=== PATIENT | male | born 1960 | race Caucasian/White ===

== ENCOUNTER 2023-04-18 12:34 | Inpatient (IN) | payer MEDICARE, OTHER ==
[~2023-04-18] VITALS: Ht 175.3 cm; Wt 97.5 kg
--- NOTE | 2023-04-18 12:39 | NUR ---
PAGED ART, MANUFACTURING CLERK FOR CONSULT. NO ANSWER. WILL PAGE AGAIN.
--- NOTE | 2023-04-18 12:45 | NUR ---
JOESPH ALVES FROM [facility] FOR GEROPSYCH ADMISSION REQUIRING CRISIS EVAL. THE PATIENT IS ALERT AND ORIENTED X 2-3. DENIES SI/HI. DENIES HAVING ANY TYPE OF HALLUCINATIONS. IN ROOM AIR AND DENIES SOB. RESPIRATION REGULAR AND UNLABORED. WILL CONTINUE TO MONITOR THE PATIENT.
[2023-04-18] MEDS ORDERED: LEVE500T20 PO (13:38)
[2023-04-18] MEDS ORDERED: PANT40TA49 PO (13:38)
[2023-04-18] MEDS ORDERED: ATOR40TA PO (13:38)
--- NOTE | 2023-04-18 13:47 | NUR ---
SPOKE WITH RUFUS BERNAL, ART PAGED.
--- NOTE | 2023-04-18 15:58 | NUR ---
BED 228. ADMITTING MADE AWARE
--- NOTE | 2023-04-18 16:01 | NUR ---
REPORT GIVEN TO NURSE MARTINEZ FOR ELVIRA
--- NOTE | 2023-04-18 16:54 | NUR ---
GPS/TN RECEIVED PT ON 5150 HOLD FROM ER ADMITTING ORDERS FROM DR RODRIGUEZ RECEIVED AND CARRIED OUT. ON FACE TO FACE ASSESSMENT NO SI/HI REPORTED. AMBULATORY. PROPERTY CHECKED FOR CONTRABAND. WILL CONTINUE WITH ADMISSION.
--- NOTE | 2023-04-18 16:59 | NUR ---
THE PATIENT IS TRANSFERED TO ROOM 220 IN STABLE CONDITION PER POLICY.
[2023-04-18] MEDS ORDERED: MAG HYDROX/AL HYDROX/SIMETH 30 ML UDC PO PRN (17:00)
[2023-04-18] MEDS ORDERED: MAGNESIUM HYDROXIDE 30 ML UDC PO PRN (17:00)
[2023-04-18] MEDS ORDERED: LORAZEPAM 0.5 MG TABLET PO PRN (17:00)
[2023-04-18] MEDS ORDERED: BLOOD SUGAR DIAGNOSTIC 1 EACH STRIP IN ONE (17:00)
[2023-04-18] MEDS ORDERED: ASCO-352 PO (17:06)
[2023-04-18] MEDS ORDERED: LACT1CAP71 PO (17:06)
[2023-04-18] MEDS ORDERED: CHRO1TAB8 PO (17:06)
--- NOTE | 2023-04-18 17:14 | NUR ---
GPS/RN MELIA LACKEY HOLDER PILE DRIVING RECONCILED HOME MEDS
--- NOTE | 2023-04-18 19:13 | NUR ---
GPS/RN ENDORSED TO OCTAVIO GRANT TO FINISH CONSENT FORMS AND CALL THE FAMILY.
--- NOTE | 2023-04-18 19:53 | NUR ---
GPS RISK COMPLIANCE MANAGER NOTE: PATIENT IS ALERT AND ORIENTED X 2-3. DENIES SI/HI. DENIES HAVING ANY TYPE OF HALLUCINATIONS. IN ROOM AIR AND DENIES SOB. RESPIRATION REGULAR AND UNLABORED. EASILY AGITATED AND IRRITABLE. 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 WILL CONTINUE TO MONITOR THE PATIENT AND ANTICIPATE NEEDS.
[2023-04-18 20:00] VITALS: BP 136/71; TEMP 98.1
[2023-04-18] MEDS: ATORVASTATIN 40 MG TABLET PO SCH (21:30)
[2023-04-18] MEDS: TEMAZEPAM 7.5 MG CAPSULE PO PRN (21:30)
--- NOTE | 2023-04-18 21:30 | NUR ---
GPS PASTRY BAKER NOTE RESTORIL PRN REQUESTED BY PT FOR INSOMNIA- RX GIVEN PER PT'S REQUEST AND MD'S ORDER.
--- NOTE | 2023-04-18 22:33 | NUR ---
GPS MOBILITY DEVELOPER NOTE 1HR POST RESTORIL-PT NOTED SLEEPING, EASY TO AROUSE. SAFETY MEASURES OBSERVED.WILL CONT TO MONITOR SAFETY AND BEHAVIOR.
--- NOTE | 2023-04-19 01:06 | NUR ---
GPS PARASITOLOGY TEACHER NOTE PT IN BED, APPEARS SLEEPING, BREATHING EVEN AND UNLABORED, EASY TO AROUSE. SAFETY MEASURES OBSERVED. WILL CONTINUE TO MONITOR BEHAVIOR AND SAFETY.
--- NOTE | 2023-04-19 02:06 | NUR ---
GPS MANAGER COMMERCIAL SALES NOTE PT NOTED AWAKE AT THIS TIME, PT REQUESTED FOR A URINAL, URINAL PROVIDED AND ASKED PT IF NEEDS ANYTHING ELSE AT THIS TIME,OR IF HE NEEDS FURTHER ASSISTANCE, PT VERBALIZED HE IS OK AND WILL CALL STAFF/NURSE IF HE NEEDS ANY HELP.
--- NOTE | 2023-04-19 03:30 | NUR ---
GPS DEALER COMPLIANCE REPRESENTATIVE NOTE PT GOT UP AND REQUESTED FOR HIS SWEATER , OFFERED TO ADJUST PT'S ROOM TEMP, BUT PT STATED TEMPERATURE IN ROOM IS FINE, SWEATER HELPS HIM KEEP WARM AND STATED IF HIS BODY GETS COLD HIS HIP HURTS AND VERBALIZED HE DOES NOT WANT PAIN MEDICINE, PT'S ORANGE SWEATER GIVEN TO HIM BY CHARGE NURSE NOHEMY PER PT'S REQUEST, STRINGS REMOVED PRIOR FOR SAFETY MEASURES AND GPS PROTOCOL,PT VERBALIZED UNDERSTANDING OF THE SAFETY MEASURES, ASSISTED PT BACK TO HIS BED. PT IS COOPERATIVE. WILL CONTINUE TO MONITOR.
--- NOTE | 2023-04-19 06:12 | NUR ---
GPS SOLUTION SPECIALIST NOTE PT RESTING IN BED AT THIS TIME, NO S/SX OF DISTRESS, ALERT ORIENTED X 3, ABLE TO VERBALIZED HIS NEEDS, COOPERATIVE DURING SHIT BUT WITH EPISODES OF AGITATION AND EASILY IRRITABLE, TENDS TO BE DEMANDING AND NEEDY AT TIMES, BUT APPRECIATIVE WITH ALL ASSISTANCE PROVIDED. PT SLEPT APPROXIMATELY 7HRS DURING SHIFT. ALL NEEDS ATTENDED, SAFETY MEASURES OBSERVED. BED AT LOWEST POSITION , SIDE TABLE WITHIN PT'S REACHED. WILL CONT. TO MONITOR PT'S BEHAVIOR AND SAFETY. WILL ENDORSE CONTINUATION OF CARE TO AM ONCOMING NURSE.
[2023-04-19] MEDS: PANTOPRAZOLE 40 MG TABLET.DR PO SCH ×2 (07:30→08:30)
[2023-04-19 08:00] VITALS: BP 155/65; TEMP 98.6
[2023-04-19 08:10] LABS: ALBUMIN 3.5 g/dL (3.4-5.0); BILIRUBIN,TOTAL 0.5 mg/dL (0.2-1.0); CALCIUM, SERUM 9.3 mg/dL (8.5-10.1); POTASSIUM 4.2 mmol/L (3.5-5.1); TOTAL PROTEIN, SERUM 7.6 g/dL (6.4-8.2)
[2023-04-19] MEDS: LEVETIRACETAM (250 MG) 250 MG TABLET PO SCH (08:30)
[2023-04-19] MEDS: ARIPIPRAZOLE 5 MG TABLET PO SCH ×2 (10:25→16:13)
[2023-04-19] MEDS: AMLODIPINE BESYLATE 5 MG TABLET PO SCH (10:25)
[2023-04-19] MEDS: DIVALPROEX SODIUM 250 MG TABLET.DR PO SCH ×2 (10:25→20:47)
[2023-04-19 16:00] VITALS: BP 152/84; TEMP 97.7
[2023-04-19] MEDS: ACETAMINOPHEN 325 MG TABLET PO PRN (20:52)
[2023-04-19 20:53] VITALS: BP 140/70; TEMP 97.9
[2023-04-19] MEDS: ATORVASTATIN 40 MG TABLET PO SCH (21:05)
[2023-04-20] MEDS: PANTOPRAZOLE 40 MG TABLET.DR PO SCH (07:30)
[2023-04-20 08:00] VITALS: BP 143/83; TEMP 97.4
[2023-04-20] MEDS: DIVALPROEX SODIUM 250 MG TABLET.DR PO SCH ×2 (08:33→21:36)
[2023-04-20] MEDS: AMLODIPINE BESYLATE 5 MG TABLET PO SCH (08:33)
[2023-04-20] MEDS: ARIPIPRAZOLE 5 MG TABLET PO SCH ×2 (08:33→16:18)
[2023-04-20] MEDS: LEVETIRACETAM (250 MG) 250 MG TABLET PO SCH (08:33)
[2023-04-20] MEDS ORDERED: POLYETHYLENE GLYCOL 3350 17 GM POWD.PACK PO PRN (13:00)
[2023-04-20] MEDS: DOCUSATE SODIUM 100 MG CAPSULE PO SCH ×2 (13:16→16:18)
[2023-04-20 16:00] VITALS: BP 141/94; TEMP 97.8
[2023-04-20 20:20] VITALS: BP 139/83; TEMP 98.1
[2023-04-20] MEDS: ATORVASTATIN 40 MG TABLET PO SCH (21:36)
--- NOTE | 2023-04-20 21:44 | NUR ---
Pt A/O x3 and able to make needs known. Pt is compliant with care and friendly with staff. Compliant with all PM meds and tolerated well. Pt is calm and resting in bed without s/s of any kind of distress. Tolerating room air well without SOB noted. Has left side of body weakness and able to transfer to wheelchair safely. Has BRP. Vital signs within normal limits. Frequent visual check done for safety Q 15mins. Will continue to monitor. Will endorse to next shift.
[2023-04-20] MEDS: ACETAMINOPHEN 325 MG TABLET PO PRN (21:51)
--- NOTE | 2023-04-20 21:54 | NUR ---
Pt c/o left hip pain 01/17. Tylenol 650mg po prn given as ordered. Will continue to monitor.
--- NOTE | 2023-04-20 23:00 | NUR ---
Post 1 hr Tylenol effective. WA 0/10. Will continue to monitor. Frequent visual check done for safety.
[2023-04-21 08:00] VITALS: BP 135/87; TEMP 97.6
[2023-04-21] MEDS: ARIPIPRAZOLE 5 MG TABLET PO SCH ×2 (08:51→16:14)
[2023-04-21] MEDS: DOCUSATE SODIUM 100 MG CAPSULE PO SCH ×2 (08:51→16:14)
[2023-04-21] MEDS: AMLODIPINE BESYLATE 5 MG TABLET PO SCH (08:52)
[2023-04-21] MEDS: DIVALPROEX SODIUM 250 MG TABLET.DR PO SCH ×2 (08:52→21:02)
[2023-04-21] MEDS: LEVETIRACETAM (250 MG) 250 MG TABLET PO SCH (08:52)
[2023-04-21] MEDS: PANTOPRAZOLE 40 MG TABLET.DR PO SCH (08:52)
--- NOTE | 2023-04-21 10:09 | NUR ---
MIAN Discharge Note: Patient currently resides with brother Hudson ([phone]) located at [address] [place] [address] , [place] [address]; ([phone]). Pt unsure if he will return back, if not pt would want this video game script writer to find him a SNF. MIAN will work with the MD, family, and pt to help coordinate appropriate discharge.
--- NOTE | 2023-04-21 10:09 | NUR ---
MIAN Clinical Note: Pt placed on a 5150 hold for GD. Per hold, pt was aggressive with family. Patient currently resides with brother Hudson ([phone]) located at [address] [place] [address]; ([phone]). Pt unsure if he will return back, if not pt would want this marketing copywriter to find him a SNF.
--- NOTE | 2023-04-21 13:16 | NUR ---
MIAN Family Contact: SW attempted to contact pt's brother Everardo ([phone]) and his phone was off and MIAN was unable to leave a voicemail due to mailbox not being set up. MIAN will attempt to contact again.
--- NOTE | 2023-04-21 13:34 | NUR ---
wants to make own arrangements for discharge.social service informed.
--- NOTE | 2023-04-21 14:48 | NUR ---
MIAN Family Contact: SW received a call from pt's brother Everardo ([phone]) who stated that pt cannot return back and will need a SNF.
[2023-04-21 16:00] VITALS: BP 143/96; TEMP 98.2
[2023-04-21 21:02] VITALS: BP 118/64; TEMP 97.4
[2023-04-21] MEDS: ACETAMINOPHEN 325 MG TABLET PO PRN (21:02)
[2023-04-21] MEDS: ATORVASTATIN 40 MG TABLET PO SCH (21:02)
[2023-04-21] MEDS: TEMAZEPAM 7.5 MG CAPSULE PO PRN (21:03)
[2023-04-22] MEDS: PANTOPRAZOLE 40 MG TABLET.DR PO SCH (07:58)
[2023-04-22 08:00] VITALS: BP 124/72; TEMP 98.6
[2023-04-22] MEDS: LEVETIRACETAM (250 MG) 250 MG TABLET PO SCH (08:00)
[2023-04-22] MEDS: DOCUSATE SODIUM 100 MG CAPSULE PO SCH ×2 (08:00→16:33)
[2023-04-22] MEDS: ARIPIPRAZOLE 5 MG TABLET PO SCH ×2 (08:01→16:34)
[2023-04-22] MEDS: DIVALPROEX SODIUM 250 MG TABLET.DR PO SCH (08:01)
[2023-04-22] MEDS: AMLODIPINE BESYLATE 5 MG TABLET PO SCH (08:01)
[2023-04-22 16:00] VITALS: BP 104/58; TEMP 98.1
[2023-04-22] MEDS: ACETAMINOPHEN 325 MG TABLET PO PRN (18:22)
--- NOTE | 2023-04-22 18:22 | NUR ---
MUSHROOM PICKER NOTE PATIENT C/O LEFT HIP PAIN IN SCALE 0-10, PATIENT STATED"8". TYLENOL PO GIVEN DIRECTED.
--- NOTE | 2023-04-22 19:00 | NUR ---
FLOORING PROFESSIONAL CLOSING NOTE PATIENT AWAKE, ALERT AND ORIENTED X3. PATIENT CALM, CONVERSING WITHOUT S/S OF DISCOMFORT NOTED. PATIENT DENIES PAIN. PATIENT IS USING W/C TO GO AROUND THE HALLWAY. SAFETY MEASURES IN PLACE, BED LOCKED TO THE LOWEST POSITION, TABLE WITHIN REACH. I WILL ENDORSE TO THE FOLLOWING NURSE.
[2023-04-22 20:23] VITALS: BP 110/71; TEMP 97.6
[2023-04-22] MEDS: TEMAZEPAM 7.5 MG CAPSULE PO PRN (21:16)
[2023-04-22] MEDS: DIVALPROEX SODIUM 500 MG TABLET.DR PO SCH (21:16)
[2023-04-22] MEDS: ATORVASTATIN 40 MG TABLET PO SCH (21:16)
[2023-04-23] MEDS: PANTOPRAZOLE 40 MG TABLET.DR PO SCH (07:59)
[2023-04-23 08:00] VITALS: BP 139/76; TEMP 98.6
[2023-04-23] MEDS: ARIPIPRAZOLE 5 MG TABLET PO SCH ×2 (08:00→16:44)
[2023-04-23] MEDS ORDERED: DIVALPROEX SODIUM 250 MG TABLET.DR PO SCH (08:00)
[2023-04-23] MEDS: AMLODIPINE BESYLATE 5 MG TABLET PO SCH (08:00)
[2023-04-23] MEDS: DOCUSATE SODIUM 100 MG CAPSULE PO SCH ×2 (08:00→16:44)
[2023-04-23] MEDS: LEVETIRACETAM (250 MG) 250 MG TABLET PO SCH (08:01)
--- NOTE | 2023-04-23 13:13 | NUR ---
SNF Referral: MIAN sent clinicals to Martha mckinnon from [facility] ([phone]) for placement. MIAN sent H & P, progress notes, and medication list.
[2023-04-23] MEDS: DIVALPROEX SODIUM 250 MG TABLET.DR PO SCH (13:22)
--- NOTE | 2023-04-23 13:56 | NUR ---
SNF Contact: SW spoke with Martha mckinnon from [facility] ([phone]) who stated pt is accepted.
[2023-04-23 16:00] VITALS: BP 135/75; TEMP 98.7
[2023-04-23 19:43] VITALS: BP 129/80; TEMP 97.8
[2023-04-23] MEDS: DIVALPROEX SODIUM 500 MG TABLET.DR PO SCH (21:02)
[2023-04-23] MEDS: ATORVASTATIN 40 MG TABLET PO SCH (21:02)
[2023-04-23] MEDS: ACETAMINOPHEN 325 MG TABLET PO PRN (21:02)
[2023-04-23] MEDS: TEMAZEPAM 7.5 MG CAPSULE PO PRN (23:13)
[2023-04-24 08:00] VITALS: BP 140/84; TEMP 97.9
[2023-04-24] MEDS: PANTOPRAZOLE 40 MG TABLET.DR PO SCH (08:10)
[2023-04-24] MEDS: ARIPIPRAZOLE 5 MG TABLET PO SCH ×2 (08:10→16:05)
[2023-04-24] MEDS: DIVALPROEX SODIUM 250 MG TABLET.DR PO SCH ×2 (08:10→12:22)
[2023-04-24] MEDS: LEVETIRACETAM (250 MG) 250 MG TABLET PO SCH (08:11)
[2023-04-24] MEDS: AMLODIPINE BESYLATE 5 MG TABLET PO SCH (08:11)
[2023-04-24] MEDS: DOCUSATE SODIUM 100 MG CAPSULE PO SCH ×2 (08:11→16:05)
--- NOTE | 2023-04-24 09:56 | NUR ---
RN-CO: PATIENT IS IN THE DINING ROOM, SOCIALIZING W/ OTHER PATIENTS, SHE IS COOPERATIVE TO CARE. PT IS UNKEMPT AND DISHEVELED, UNMOTIVATED TO SELF CARE VENTILATE HER FEELINGS.
[2023-04-24 16:00] VITALS: BP 132/84; TEMP 97.5
--- NOTE | 2023-04-24 17:13 | NUR ---
RN-CO: Patient is insisting to shave his hair using hospital razor. RN stated that we cannot allowed him to shave his hair but he can shave his ragland with staff supervision. Patient stated " I can jassi this hospital for not letting me shave my hair and that is a big amount of money for me. RN replied he can go to the [facility] once he is discharge.
--- NOTE | 2023-04-24 19:30 | NUR ---
GPS RN NOTE, RECEIVED PATIENT AWAKE AND IN BED, NO S/S OR COMPLAINTS OF PAIN AT THIS TIME. PATIENT IS DISPLAYING NO S/S OF APPARENT DISTRESS AT THIS TIME. PATIENT BREATHING IS UNLABORED WITH EQUAL RISE AND FALL OF THE CHEST. PATIENT IS ALERT AND ORIENTED X 3 ON ROOM AIR WITH A SPO2 99%. PATIENT IS COMPLAINT WITH MEDICATIONS, ANXIOUS AT TIMES, DEMANDING, MAKES NEEDS KNOWN, IRRITABLE AT TIMES, AND COOPERATIVE. PATIENT DENIES SUICIDAL AND HOMICIDAL IDEATIONS AT THIS TIME. PATIENT ASSISTED WITH TURNING AND REPOSITIONING Q2HR AND PRN FOR COMFORT AND CIRCULATION. PATIENT HAS NO NEEDS AT THIS TIME. PATIENT EDUCATED ON THE USE OF THE CALL HAWKINS. PATIENT BED SIDE RAILS UP X 2 FOR SAFETY. PATIENT BED IS LOCKED, LOW, WITH BED ALARM ON. WILL CONTINUE TO MONITOR THIS PATIENT Q15 MINUTES WITH THE HELP OF STAFF TO MAINTAIN SAFETY.
[2023-04-24] MEDS: DIVALPROEX SODIUM 500 MG TABLET.DR PO SCH (21:36)
[2023-04-24] MEDS: ATORVASTATIN 40 MG TABLET PO SCH (21:36)
[2023-04-24] MEDS: ACETAMINOPHEN 325 MG TABLET PO PRN (21:52)
--- NOTE | 2023-04-24 21:52 | NUR ---
GPS RN NOTE, PATIENT HAS A COMPLAINT OF BILATERAL HIP PAIN AT 3 OUT OF 10 ON THE PAIN SCALE AND IS REQUESTING TYLENOL AT THIS TIME. PATIENT VITAL SIGNS ARE STABLE. GAVE TYLENOL 650MG PO Q6HR PRN ORDERED. WILL REASSESS PAIN AND I WILL CONTINUE TO MONITOR THIS PATIENT WITH THE HELP OF STAFF.
[2023-04-25 08:00] VITALS: BP 127/74; TEMP 98
[2023-04-25] MEDS: DOCUSATE SODIUM 100 MG CAPSULE PO SCH ×2 (08:20→16:26)
[2023-04-25] MEDS: LEVETIRACETAM (250 MG) 250 MG TABLET PO SCH (08:20)
[2023-04-25] MEDS: AMLODIPINE BESYLATE 5 MG TABLET PO SCH (08:21)
[2023-04-25] MEDS: ARIPIPRAZOLE 5 MG TABLET PO SCH ×2 (08:21→16:26)
[2023-04-25] MEDS: DIVALPROEX SODIUM 250 MG TABLET.DR PO SCH ×2 (08:21→12:25)
[2023-04-25] MEDS: PANTOPRAZOLE 40 MG TABLET.DR PO SCH (08:21)
--- NOTE | 2023-04-25 09:04 | NUR ---
Court Notification: SW attempted to contact pt's brother Everardo ([phone]) to notify of [id number] hearing.
--- NOTE | 2023-04-25 09:23 | NUR ---
Court Hearing: Patient's court hearing for 0100 was today and it was upheld for GD.
--- NOTE | 2023-04-25 09:45 | NUR ---
RN Notes: Received pt. asleep in bed, breathing is even and unlabored. Ate 100% for breakfast and compliant on meds. Pt. interacts with staffs and attended in group activity. Encouraged to verbalize feelings and motivated to always attend in group activities. Needs attended and will continue to monitor for safety.
[2023-04-25 16:00] VITALS: BP 128/88; TEMP 98.6
[2023-04-25 20:48] VITALS: BP 144/78; TEMP 98.1
[2023-04-25] MEDS: ATORVASTATIN 40 MG TABLET PO SCH (21:23)
[2023-04-25] MEDS: DIVALPROEX SODIUM 500 MG TABLET.DR PO SCH (21:23)
[2023-04-26 08:00] VITALS: BP 146/83; TEMP 97.8
[2023-04-26] MEDS: DOCUSATE SODIUM 100 MG CAPSULE PO SCH ×2 (08:23→16:13)
[2023-04-26] MEDS: PANTOPRAZOLE 40 MG TABLET.DR PO SCH (08:23)
[2023-04-26] MEDS: ARIPIPRAZOLE 5 MG TABLET PO SCH ×2 (08:23→16:13)
[2023-04-26] MEDS: AMLODIPINE BESYLATE 5 MG TABLET PO SCH (08:23)
[2023-04-26] MEDS: DIVALPROEX SODIUM 250 MG TABLET.DR PO SCH ×2 (08:23→12:09)
[2023-04-26] MEDS: LEVETIRACETAM (250 MG) 250 MG TABLET PO SCH (08:24)
--- NOTE | 2023-04-26 11:16 | NUR ---
RN-NOTES RECEIVED PATIENT AROUND 0700AM LYING IN BED AWAKE A/O X3 CALM,NO ACUTE DISTRESS NOTED.COMPLIANT WITH MEDICATIONS.PATIENT ABLE TO TRANSFER SELF FROM BED TO WHEEL CHAIR AND VISE VERSA WITH NO ASSIST AND PATIENT ABLE TO WHEELED SELF AROUND THE UNIT . ATTENDED GROUPS.WILL CONT. MONITORING FOR SAFETY AND BEHAVIOR.
[2023-04-26 16:00] VITALS: BP 123/76; TEMP 97.8
--- NOTE | 2023-04-26 20:04 | NUR ---
RN NOTES: PATIENT WHEELING SELF AROUND THE UNIT. A/OX3. NO S/SX OF ACUTE DISTRESS NOTED. PT IS CALM UPON APPROACH,MED COMPLIANT COOPERATIVE TO CARE, DENIES SI/HI/AVH AT THIS TIME. VERBALIZATION OF FEELINGS ENCOURAGED. SAFETY PRECAUTIONS MAINTAINED. WILL CONTINUE TO MONITOR Q15MIN ROUNDS FOR SAFETY.
[2023-04-26 20:58] VITALS: BP_SYST 138; BP_SYST 140; BP_DIAS 80; BP_DIAS 84; TEMP 97.9
[2023-04-26] MEDS: DIVALPROEX SODIUM 500 MG TABLET.DR PO SCH (21:16)
[2023-04-26] MEDS: ATORVASTATIN 40 MG TABLET PO SCH (21:16)
[2023-04-27 08:00] VITALS: BP 103/62; TEMP 97.6
[2023-04-27] MEDS: ARIPIPRAZOLE 5 MG TABLET PO SCH ×2 (08:24→17:26)
[2023-04-27] MEDS: PANTOPRAZOLE 40 MG TABLET.DR PO SCH (08:24)
[2023-04-27] MEDS: LEVETIRACETAM (250 MG) 250 MG TABLET PO SCH (08:24)
[2023-04-27] MEDS: DIVALPROEX SODIUM 250 MG TABLET.DR PO SCH ×2 (08:24→12:09)
[2023-04-27] MEDS: AMLODIPINE BESYLATE 5 MG TABLET PO SCH (08:25)
[2023-04-27] MEDS: DOCUSATE SODIUM 100 MG CAPSULE PO SCH ×2 (08:25→17:26)
[2023-04-27 16:00] VITALS: BP 115/67; TEMP 98.6
[2023-04-27 20:00] VITALS: BP 135/76; TEMP 98
[2023-04-27] MEDS: ATORVASTATIN 40 MG TABLET PO SCH (21:20)
[2023-04-27] MEDS: DIVALPROEX SODIUM 500 MG TABLET.DR PO SCH (21:21)
[2023-04-28 08:00] VITALS: BP 137/85; TEMP 98.6
[2023-04-28] MEDS: DIVALPROEX SODIUM 250 MG TABLET.DR PO SCH ×2 (08:10→12:50)
[2023-04-28] MEDS: PANTOPRAZOLE 40 MG TABLET.DR PO SCH (08:10)
[2023-04-28] MEDS: DOCUSATE SODIUM 100 MG CAPSULE PO SCH ×2 (08:10→16:13)
[2023-04-28] MEDS: LEVETIRACETAM (250 MG) 250 MG TABLET PO SCH (08:11)
[2023-04-28] MEDS: ARIPIPRAZOLE 5 MG TABLET PO SCH ×2 (08:11→16:13)
[2023-04-28] MEDS: AMLODIPINE BESYLATE 5 MG TABLET PO SCH (08:11)
[2023-04-28 16:00] VITALS: BP 115/68; TEMP 98.6
--- NOTE | 2023-04-28 18:39 | NUR ---
RN- CLOSING NOTES PATIENT AWAKE, SITTING UP IN THE WHEELCHAIR, BREATHING EVEN AND NON LABORED WITH NO S/S OF DISTRESS. PATIENT IS COOPERATIVE, GUARDED, ANXIOUS, DEPRESSED, AND ISOLATIVE. ENCOURAGED PATIENT TO LEAVE ROOM AND SOCIALIZE WITH STAFF, PATIENT VISIBLE ON THE UNIT AND IN DINING ROOM. PATIENT IS MEDICATION COMPLIANT. DENIES SI/HI AT THIS TIME. WILL CONTINUE TO MONITOR Q 15 MINUTES FOR SAFETY AND BEHAVIOR.
--- NOTE | 2023-04-28 20:00 | NUR ---
PT UP IN WHEELCHAIR IN THE HALLWAY. BREATHING EVEN AND UNLABORED, NO DISTRESS NOTED AT THIS TIME. PT ALERT/ORT X3. NEEDY, CALM, MED COMPLIANT. USES W/C, ABLE TO TRANSFER HIMSELF BED TO W/C. ALL NEEDS ATTENDED AND ANTICIPATED. PT IN STABLE COND AT THIS TIME, WILL CONTINUE TO MONITOR FOR SAFETY ANS BEHAVIOR.
[2023-04-28 20:42] VITALS: BP 137/68; TEMP 97.6
[2023-04-28] MEDS: TEMAZEPAM 7.5 MG CAPSULE PO PRN (21:25)
[2023-04-28] MEDS: ATORVASTATIN 40 MG TABLET PO SCH (21:38)
[2023-04-28] MEDS: DIVALPROEX SODIUM 500 MG TABLET.DR PO SCH (21:40)
[2023-04-29 08:00] VITALS: BP 142/82; TEMP 97.9
[2023-04-29] MEDS: DIVALPROEX SODIUM 250 MG TABLET.DR PO SCH ×2 (08:11→12:22)
[2023-04-29] MEDS: ARIPIPRAZOLE 5 MG TABLET PO SCH ×2 (08:11→17:16)
[2023-04-29] MEDS: DOCUSATE SODIUM 100 MG CAPSULE PO SCH ×2 (08:11→17:17)
[2023-04-29] MEDS: PANTOPRAZOLE 40 MG TABLET.DR PO SCH (08:11)
[2023-04-29] MEDS: LEVETIRACETAM (250 MG) 250 MG TABLET PO SCH (08:11)
[2023-04-29] MEDS: AMLODIPINE BESYLATE 5 MG TABLET PO SCH (08:12)
[2023-04-29 16:14] VITALS: BP 135/79; TEMP 97.8
[2023-04-29] MEDS: DIVALPROEX SODIUM 500 MG TABLET.DR PO SCH (21:03)
[2023-04-29] MEDS: ATORVASTATIN 40 MG TABLET PO SCH (21:04)
[2023-04-29 21:39] VITALS: BP 122/64; TEMP 97.3
[2023-04-29] MEDS: ACETAMINOPHEN 325 MG TABLET PO PRN (22:36)
[2023-04-30 08:00] VITALS: BP 126/89; TEMP 98.7
[2023-04-30] MEDS: PANTOPRAZOLE 40 MG TABLET.DR PO SCH (08:00)
[2023-04-30] MEDS: ARIPIPRAZOLE 5 MG TABLET PO SCH (08:00)
[2023-04-30] MEDS: DIVALPROEX SODIUM 250 MG TABLET.DR PO SCH ×2 (08:00→13:53)
[2023-04-30] MEDS: LEVETIRACETAM (250 MG) 250 MG TABLET PO SCH (08:00)
[2023-04-30 08:01] VITALS: BP 126/89
[2023-04-30] MEDS: AMLODIPINE BESYLATE 5 MG TABLET PO SCH (08:01)
[2023-04-30] MEDS: DOCUSATE SODIUM 100 MG CAPSULE PO SCH (08:01)
--- NOTE | 2023-04-30 08:13 | NUR ---
SW Discharge Note: Patient will be discharged to [facility] located at [address] [place] [id number]; ([phone]) via ambulance. Martha mckinnon from [facility] ([phone]) accepted pt and is welcoming pt today. Pts brother Everardo ([phone]) is aware. Pt appears to be alert and oriented x3. Pt denies visual/auditory hallucinations. Pt denies denies suicidal or homicidal ideation. Patient will continue to follow-up with (Psychiatrist) Dr. Elkins [address] [facility] [address], [place] [address]; ([phone]). (Retail Merchandiser Technician) Dr. Wilkins [address] [facility] [address], [place] [address]; ([phone]).
--- NOTE | 2023-04-30 14:40 | NUR ---
NURSE NOTE: 62 YEAR OLD MALE DISCHARGED TO [facility] IN STABLE COND. COMPLIANT WITH MEDICATIONS, COOPERATIVE WITH TREATMENT PLANS. PT DENIES SI/HI AND INSTRUCTED TO GO TO STAFF OR CALL 911 IF DEVELOPING SI/HI. BEHAVIOR IMPROVED, PSYCHIATRIC TX PLANS MET, MEDICAL TX PLANS DEFERRED FOR CONTINUAL MONITORING. EDUCATED PT ABOUT AFTER CARE PLAN AND COPY PROVIDED. RETURNED PERSONAL BELONGINGS TO PT. DR RODRIGUEZ DISCONTINUED THE HOLD. BOTH DR RODRIGUEZ (PSYCH) AND DR BATES (MED) DISCHARGED PT AND RECONCILED MEDS. REPORT GIVEN TO CLAU VIZCAINO AT [facility] FOR CONTINUITY OF CARE. PT SIGNED DISCHARGE PAPERWORK. TO FOLLOW UP WITH DR RODRIGUEZ AND DR BATES. PT LEFT THE UNIT AT 1440 VIA AMBULANCE.
== END 2023-04-30 14:40 | DRG 885 ==
LOC: ER 12:40 → GPS 16:25
PROVIDERS: ADMIT Psychiatry & Neurology Psychiatry; ATTEND Nurse Practitioner Family
DX: F31.9 Bipolar disorder, unspecified (principal); I69.354 Hemiplegia and hemiparesis following cerebral infarction affecting left non-dominant side; F25.9 Schizoaffective disorder, unspecified; F29 Unspecified psychosis not due to a substance or known physiological condition; E78.5 Hyperlipidemia, unspecified; Z59.00 Homelessness unspecified; Z73.6 Limitation of activities due to disability; F39 Unspecified mood [affective] disorder; F10.90 Alcohol use, unspecified, uncomplicated; F14.91 Cocaine use, unspecified, in remission; Z20.822 Contact with and (suspected) exposure to COVID-19
CPT/HCPCS: 36415; 80053-TC; 80061-TC; 80164-TC; 87081-TC; 97110-TC; 97112-TC; 97116-TC; 97530-TC